=== PATIENT | female | born 1945 | race Caucasian/White ===

== ENCOUNTER → 2023-09-02 | Outpatient (REF) | payer MEDICARE, SELFPAY ==
[2023-09-03 08:00] LABS: Mucous, Urine 0 SEEN /hpf (<or=2+)
[2023-09-03 08:07] LABS: Color, Urine Yellow (Yellow); Glucose, Dipstick Normal (Normal); Ketone-Dipstick Negative (Negative); Leukocyte Esterase-Dipstick 500 /ul (Negative); Nitrite-Dipstick Negative (Negative); Occult Blood-Urine 250 /ul (Negative); Protein-Dipstick 30 mg/dl (Negative); Urine Bilirubin Dipstick Negative (Negative); Urine Clarity Cloudy (Clear); Urine Urobilinogen Normal (Normal); Urine pH 6.5 (5.0 - 8.0)
[2023-09-03 08:18] LABS: Red Blood Cells-Urine 50-100 SEEN /hpf (0-5); Squamous Epithelial Cells - UA 0-5 SEEN /hpf (5-10); White Blood Cells 0-5 SEEN /hpf (0-5)
[2023-09-03 08:19] LABS: Bacteria 2+ /hpf (None Seen)
== END ==
LOC: OLS.ACW100 18:00
PROVIDERS: Visit Provider Family Medicine
DX: R30.0 Dysuria (principal)
CPT/HCPCS: 81001; 87077; 87086; 87088; 87186

== ENCOUNTER → 2023-09-11 | Outpatient (REF) | payer MEDICARE, SELFPAY | LOC: OLS.ACW100 04:00 | PROVIDERS: Visit Provider Family Medicine | DX: I26.99 Other pulmonary embolism without acute cor pulmonale (principal); R53.1 Weakness; R53.83 Other fatigue; R53.81 Other malaise; R27.9 Unspecified lack of coordination; T45.515D Adverse effect of anticoagulants, subsequent encounter | CPT/HCPCS: 87502; 87635 ==